=== PATIENT | female | born 1930 | race Caucasian/White ===

== ENCOUNTER 2019-05-26 18:40 | Emergency (ER) | payer MEDICARE, BC ==
[~2019-05-26] VITALS: Ht 160 cm; Wt 72.6 kg
--- NOTE | 2019-05-26 19:03 | NUR ---
Report given to KIMMY Singh
[2019-05-26] MEDS ORDERED: TETRACAINE HCL 0.5% OPHT DROP 2 ML BOTTLE ONE (19:07)
[2019-05-26] MEDS ORDERED: FLUORESCEIN SODIUM 1 MG STRIP ONE (19:08)
[2019-05-26] MEDS ORDERED: TETRACAINE HCL 0.5% OPHT DROP 2 ML BOTTLE OP ONE (19:15)
[2019-05-26] MEDS ORDERED: FLUORESCEIN SODIUM 1 MG STRIP OP ONE (19:15)
--- NOTE | 2019-05-26 19:30 | NUR ---
UMAIR HAN at bedside for patient evaluation.
[2019-05-26] MEDS ORDERED: CIPROFLOXACIN 0.3% OPHT DROP 2.5 ML BOTTLE ONE (19:47)
--- NOTE | 2019-05-26 19:51 | NUR ---
Patient discharged to home in stable conditon. Written and verbal after care instructions given. Patient verbalizes understanding of instructions. Ambulated from ER with stable gait. All belongings with patient.
[2019-05-26 19:52] VITALS: BP 144/87
[2019-05-26] MEDS ORDERED: CIPROFLOXACIN 0.3% OPHT DROP 2.5 ML BOTTLE OP ONE (20:00)
== END 2019-05-26 19:52 | disposition home or self-care (01) ==
LOC: ER 18:40
DX: S05.01XA Injury of conjunctiva and corneal abrasion without foreign body, right eye, initial encounter (principal); H02.052 Trichiasis without entropion right lower eyelid; E03.9 Hypothyroidism, unspecified; Z88.8 Allergy status to other drugs, medicaments and biological substances; X58.XXXA Exposure to other specified factors, initial encounter; Y93.89 Activity, other specified; Y92.89 Other specified places as the place of occurrence of the external cause; Y99.8 Other external cause status
CPT/HCPCS: A4663